=== PATIENT | female | born 1985 | race Hispanic/Latino ===

== ENCOUNTER 2021-02-07 10:53 | Emergency (ER) | payer SELFPAY ==
[2021-02-07 11:18] VITALS: BP 113/69
--- NOTE | 2021-02-07 12:02 | Emergency Department Report ---
- General Chief complaint: Skin Rash Stated complaint: RASH Time Seen by Provider: 02/07/21 11:18 Source: patient Mode of arrival: Ambulatory Limitations: No Limitations - History of Present Illness Initial comments: Patient is a 35-year-old female presents emergency room with complaints of concerns for bedbugs. Patient states that she slept in a hotel. She states that she noticed a rash on her face and her leg. She denies any itching, drainage, fever, nausea, vomiting. She denies any known allergies. Past medical history of hypertension. - Related Data Previous Rx's Medication Instructions Recorded Last Taken Type Ibuprofen [Motrin 800 MG tab] 800 mg PO TID PRN #45 tablet 11/25/12 Unknown Rx Mupirocin [Bactroban 2% OINT] 1 applic TP TID #1 tube 02/07/21 Unknown Rx Allergies Allergy/AdvReac Type Severity Reaction Status Date / Time No Known Allergies Allergy Verified 02/07/21 10:55 Abscess Boil HPI - HPI Chief Complaint: Skin Rash Stated Complaint: RASH Time Seen by Provider: 02/07/21 11:18 Home Medications: Previous Rx's Medication Instructions Recorded Last Taken Type Ibuprofen [Motrin 800 MG tab] 800 mg PO TID PRN #45 tablet 11/25/12 Unknown Rx Mupirocin [Bactroban 2% OINT] 1 applic TP TID #1 tube 02/07/21 Unknown Rx Allergies/Adverse Reactions: Allergies Allergy/AdvReac Type Severity Reaction Status Date / Time No Known Allergies Allergy Verified 02/07/21 10:55 ED Review of Systems ROS: Stated complaint: RASH Other details as noted in HPI Comment: All other systems reviewed and negative ED Past Medical Hx - Past Medical History Previous Medical History?: No Hx Hypertension: Yes - Surgical History Past Surgical History?: No - Social History Smoking Status: Current Every Day Smoker - Medications Home Medications: Home Medications Medication Instructions Recorded Confirmed Last Taken Type Ibuprofen [Motrin 800 MG tab] 800 mg PO TID PRN #45 tablet 11/25/12 Unknown Rx Mupirocin [Bactroban 2% OINT] 1 applic TP TID #1 tube 02/07/21 Unknown Rx ED Physical Exam - General Limitations: No Limitations General appearance: alert, in no apparent distress - Head Head exam: Present: other (scabbing and crusting present to the left cheek, no erythema, no drainage, no necrosis, no blistering, no skin deuding) - Eye Eye exam: Present: normal appearance - ENT ENT exam: Present: mucous membranes moist - Neurological Exam Neurological exam: Present: alert, oriented X3 - Psychiatric Psychiatric exam: Present: normal affect, normal mood - Skin Skin exam: Present: warm, dry, other (3 cm abrasion present to the left thigh, no erythema, no increased warmth, no drainage, no crusting, no blistering, no skin denuding, no necrosis) ED Course Vital Signs 02/07/21 02/07/21 11:08 11:17 Temperature 97.8 F Pulse Rate 64 Respiratory 17 Rate Blood Pressure 113/69 [Right] O2 Sat by Pulse 100 98 Oximetry ED Medical Decision Making - Lab Data Vital Signs 02/07/21 02/07/21 11:08 11:17 Temperature 97.8 F Pulse Rate 64 Respiratory 17 Rate Blood Pressure 113/69 [Right] O2 Sat by Pulse 100 98 Oximetry - Medical Decision Making Patient is a 35-year-old female presents emergency room with complaints of concerns for bedbugs. Patient states that she slept in a hotel. She states that she noticed a rash on her face and her leg. She denies any itching, drainage, fever, nausea, vomiting. She denies any known allergies. Past medical history of hypertension. Vitals are normal. On exam:scabbing and crusting present to the left cheek, no erythema, no drainage, no necrosis, no blistering, no skin deuding, 3 cm abrasion present to the left thigh, no erythema, no increased warmth, no drainage, no crusting, no blistering, no skin denuding, no necrosis. It appears patient has been scratching has caused some excoriations. Examination of the face appears likely impetigo. Given prescription for medication. Advised patient to please stop scratching. There is no signs of bedbugs or scabies at this time. Advised patient Please use medication as prescribed. Please do not scratch the skin. Please keep area clean, dry. Wash with antibacterial soap and water twice a day and pat dry. Follow-up with your primary care doctor. Return to emergency room for any new or worsening symptoms. Critical care attestation.: If time is entered above; I have spent that time in minutes in the direct care of this critically ill patient, excluding procedure time. ED Disposition Clinical Impression: Impetigo, Abrasion Disposition: HOME / SELF CARE / HOMELESS Is pt being admited?: No Does the pt Need Aspirin: No Condition: Stable Instructions: Abrasion, Impetigo, Adult Additional Instructions: Please use medication as prescribed. Please do not scratch the skin. Please keep area clean, dry. Wash with antibacterial soap and water twice a day and pat dry. Follow-up with your primary care doctor. Return to emergency room for any new or worsening symptoms. Prescriptions: Mupirocin [Bactroban 2% OINT] 1 applic TP TID #1 tube Referrals: PRIMARY CAREMD [Primary Care Provider] - 3-5 Days JESI CORONADO MD [Staff Physician] - 3-5 Days [facility] [Provider Group] - 3-5 Days Time of Disposition: 12:01 Print Language: URDU
== END 2021-02-07 12:38 | disposition home or self-care (01) ==
LOC: ED 10:53
DX: S00.81XA Abrasion of other part of head, initial encounter (principal); S70.312A Abrasion, left thigh, initial encounter; L01.00 Impetigo, unspecified; Z79.899 Other long term (current) drug therapy; X58.XXXA Exposure to other specified factors, initial encounter; Y93.89 Activity, other specified; Y92.89 Other specified places as the place of occurrence of the external cause; Y99.8 Other external cause status
CPT/HCPCS: 99282

== ENCOUNTER 2021-08-31 16:43 | Emergency (ER) | payer SELFPAY ==
[2021-08-31 18:11] LABS: Basophils # (Auto) 0.1 K/mm3 (0.0-0.1); Basophils % (Auto) 0.8 % (0.0-1.8); Eosinophils # (Auto) 0.4 K/mm3 (0.0-0.4); Eosinophils % (Auto) 2.9 % (0.0-4.3); Hematocrit 41.9 % (30.3-42.9); Hemoglobin 14.1 gm/dl (10.1-14.3); Lymphocytes # (Auto) 2.1 K/mm3 (1.2-5.4); Lymphocytes % (Auto) 14.4 % (13.4-35.0); Mean Corpuscular HGB Conc 34 % (30-34); Mean Corpuscular Volume 89 fl (79-97); Monocytes # (Auto) 1.4 K/mm3 (0.0-0.8); Monocytes % (Auto) 9.2 % (0.0-7.3); Platelet Count 783 K/mm3 (140-440); Red Blood Count 4.73 M/mm3 (3.65-5.03); Red Cell Distribution Width 14.8 % (13.2-15.2)
[2021-08-31 18:33] LABS: Alanine Aminotransferase 23 units/L (7-56); Albumin 4.4 g/dL (3.9-5); Blood Urea Nitrogen 8 mg/dL (7-17); Calcium 9.5 mg/dL (8.4-10.2); Hemolysis Index 7
[2021-08-31 19:06] LABS: BUN/Creatinine Ratio 13
[2021-09-01] MEDS ORDERED: ONDANSETRON 4 MG ODT TAB PO ONE (01:50)
[2021-09-01] MEDS ORDERED: IBUPROFEN 600 MG TAB PO ONE (01:50)
[2021-09-01] MEDS ORDERED: HYDROcodone/ACETAMINOPHEN 5-325 MG TAB PO ONE (01:50)
[2021-09-01] MEDS ORDERED: CLINDAMYCIN 300 MG CAP PO ONE (01:50)
[2021-09-01] MEDS ORDERED: SULFAMETHOXAZOLE/TRIMETHOPRIM 800/160MG DS TAB PO ONE (01:50)
[2021-09-01] MEDS ORDERED: MUPIROCIN 2% OINT 22 GM TP ONE (02:15)
--- NOTE | 2021-09-01 03:46 | Emergency Department Report ---
ED General Adult HPI - General Chief complaint: Wound/Laceration Stated complaint: CHEST PAIN/ASTHMA Source: patient Mode of arrival: Ambulatory Limitations: No Limitations - History of Present Illness Initial comments: Patient is a 35-year-old female with a history of anxiety, depression and hypertension who presents to the ED with complaint of acute onset persistent painful multiple erythematous maculopapular wounds and lesions in the upper and lower extremities bilaterally and lower back for the last 1 week. Patient states that she has been scrubbing the wounds with soap but in the last 3 days these wounds have increased and spread. Patient denies dizziness, syncope, chest pain, shortness of breath, nausea and vomiting, diarrhea, dysuria, urinary frequency and urgency, traumatic injury, headache, abdominal pain and neck pain. MD Complaint: Multiple painful ulcerated lesions and wounds -: Gradual, week(s) (1) Location: buttocks, upper extremity (Bilaterally), lower extremity (Bilaterally) Radiation: non-radiation Severity scale (0 -10): 8 Quality: aching, sharp Consistency: constant Improves with: none Worsens with: none Associated Symptoms: denies other symptoms, rash (Erythematous maculopapular rashes diffusely in upper and lower extremities bilaterally). denies: confusion, chest pain, cough, diaphoresis, fever/chills, headaches, loss of appetite, malaise, nausea/vomiting, seizure, shortness of breath, syncope, weakness Treatments Prior to Arrival: none - Related Data Previous Rx's Medication Instructions Recorded Last Taken Type Ibuprofen [Motrin 800 MG tab] 800 mg PO TID PRN #45 tablet 11/25/12 Unknown Rx Mupirocin [Bactroban 2% OINT] 1 applic TP TID #1 tube 02/07/21 Unknown Rx Ibuprofen [Motrin] 800 mg PO Q8HR PRN #30 tablet 09/01/21 Unknown Rx Mupirocin [Bactroban 2% OINT] 1 applic TP TID #1 tube 09/01/21 Unknown Rx Sulfamethoxazole/Trimethoprim 1 each PO Q12H #20 tab 09/01/21 Unknown Rx [Bactrim DS TAB] Allergies Allergy/AdvReac Type Severity Reaction Status Date / Time No Known Allergies Allergy Verified 02/07/21 10:55 ED Review of Systems ROS: Stated complaint: CHEST PAIN/ASTHMA Other details as noted in HPI Constitutional: denies: chills, fever Eyes: denies: eye pain, eye discharge, vision change ENT: denies: ear pain, throat pain Respiratory: denies: cough, shortness of breath, wheezing Cardiovascular: denies: chest pain, palpitations Endocrine: no symptoms reported Gastrointestinal: denies: abdominal pain, nausea, diarrhea Genitourinary: denies: urgency, dysuria, discharge Musculoskeletal: denies: back pain, joint swelling, arthralgia Skin: rash (Mildly erythematous maculopapular rashes with ulcerated wounds in upper and lower extremities bilaterally as well as in the lower back), change in color. denies: lesions Neurological: denies: headache, weakness, paresthesias Psychiatric: denies: anxiety, depression Hematological/Lymphatic: denies: easy bleeding, easy bruising ED Past Medical Hx - Past Medical History Hx Hypertension: Yes Additional medical history: anxiety - Surgical History Past Surgical History?: No - Social History Smoking Status: Current Every Day Smoker - Medications Home Medications: Home Medications Medication Instructions Recorded Confirmed Last Taken Type Ibuprofen [Motrin 800 MG tab] 800 mg PO TID PRN #45 tablet 11/25/12 Unknown Rx Mupirocin [Bactroban 2% OINT] 1 applic TP TID #1 tube 02/07/21 Unknown Rx Ibuprofen [Motrin] 800 mg PO Q8HR PRN #30 tablet 09/01/21 Unknown Rx Mupirocin [Bactroban 2% OINT] 1 applic TP TID #1 tube 09/01/21 Unknown Rx Sulfamethoxazole/Trimethoprim 1 each PO Q12H #20 tab 09/01/21 Unknown Rx [Bactrim DS TAB] ED Physical Exam - General Limitations: No Limitations General appearance: alert, in no apparent distress - Head Head exam: Present: atraumatic, normocephalic, normal inspection - Eye Eye exam: Present: normal appearance, PERRL, EOMI Pupils: Present: normal accommodation - ENT ENT exam: Present: normal exam, normal orophraynx, mucous membranes moist, TM's normal bilaterally, normal external ear exam - Neck Neck exam: Present: normal inspection, full ROM - Respiratory Respiratory exam: Present: normal lung sounds bilaterally. Absent: respiratory distress, wheezes, rales, stridor, chest wall tenderness, accessory muscle use, decreased breath sounds, prolonged expiratory - Cardiovascular Cardiovascular Exam: Present: normal rhythm, tachycardia, normal heart sounds. Absent: systolic murmur, diastolic murmur, rubs, gallop - GI/Abdominal GI/Abdominal exam: Present: soft, normal bowel sounds. Absent: tenderness, guarding, hyperactive bowel sounds, hypoactive bowel sounds, organomegaly - Extremities Exam Extremities exam: Present: normal inspection, full ROM, tenderness (Palpable diffuse tenderness on upper and lower extremities due to multiple erythematous maculopapular rashes and abrasions with open wounds with purulent discharge), normal capillary refill - Back Exam Back exam: Present: normal inspection, full ROM, tenderness. Absent: CVA tenderness (R), CVA tenderness (L), muscle spasm, paraspinal tenderness - Neurological Exam Neurological exam: Present: alert, oriented X3, CN II-XII intact, normal gait, reflexes normal - Psychiatric Psychiatric exam: Present: normal affect, normal mood - Skin Skin exam: Present: warm, dry, intact, normal color, rash (Palpable diffuse tenderness on upper and lower extremities due to multiple erythematous maculopapular rashes and abrasions with open wounds with purulent discharge) ED Course Vital Signs 08/31/21 17:01 Temperature 98.2 F Pulse Rate 104 H Respiratory 20 Rate Blood Pressure 113/76 O2 Sat by Pulse 100 Oximetry ED Medical Decision Making - Lab Data Result diagrams: 08/31/21 17:43 08/31/21 17:43 - Medical Decision Making This is a 35-year-old female with a history of anxiety, depression and hypertension who presents to the ED with complaint of acute onset persistent painful multiple erythematous maculopapular wounds and lesions in the upper and lower extremities bilaterally and lower back for the last 1 week. Patient states that she has been scrubbing the wounds with soap but in the last 3 days these wounds have increased and spread. In the ED, patient is alert and oriented x3 and is not in any distress. Patient was treated for pain and also given initial oral antibiotics in the ED. Lab test results were reviewed and showed acute leukocytosis of 14,800. The rest of the lab test results are nonactionable. Patient was discharged home on pain medications, oral antibiotics and topical antibiotics and advised to follow-up with her primary care physician in 7 to 10 days for reevaluation or return to the ED immediately if symptoms get worse. - Differential Diagnosis Cellulitis; impetigo; abrasions; folliculitis Critical care attestation.: If time is entered above; I have spent that time in minutes in the direct care of this critically ill patient, excluding procedure time. ED Disposition Clinical Impression: Abrasions of multiple sites with infection, Cellulitis of upper arm and forearm Disposition: 01 HOME / SELF CARE / HOMELESS Is pt being admited?: No Does the pt Need Aspirin: No Condition: Stable Instructions: Cellulitis, Adult, [id number] Additional Instructions: Take medication with food, drink plenty of fluids, follow-up with your primary care physician in 7 to 10 days for reevaluation. Return to the ED immediately if symptoms get worse Prescriptions: Sulfamethoxazole/Trimethoprim [Bactrim DS TAB] 1 each PO Q12H #20 tab Mupirocin [Bactroban 2% OINT] 1 applic TP TID #1 tube Ibuprofen [Motrin] 800 mg PO Q8HR PRN #30 tablet PRN Reason: Pain , Severe (7-10) Referrals: [facility] [Provider Group] - 7-10 days Time of Disposition: 03:45 Print Language: [id number]
[2021-09-01 04:36] VITALS: BP 124/82
== END 2021-09-01 04:36 | disposition home or self-care (01) ==
LOC: ED 16:43
DX: T14.8XXA Other injury of unspecified body region, initial encounter (principal); L03.119 Cellulitis of unspecified part of limb; B96.89 Other specified bacterial agents as the cause of diseases classified elsewhere; I10 Essential (primary) hypertension; F17.200 Nicotine dependence, unspecified, uncomplicated; Z79.899 Other long term (current) drug therapy; X58.XXXA Exposure to other specified factors, initial encounter; Y93.89 Activity, other specified; Y92.89 Other specified places as the place of occurrence of the external cause; Y99.8 Other external cause status
CPT/HCPCS: 36415; 80053; 82140; 85025; 99282; 99283; J3490; Q0162